=== PATIENT | male | born 1970 | race Caucasian/White ===

== ENCOUNTER 2022-09-11 07:01 | Day surgery (SDC) | payer OTHER, SELFPAY ==
[2022-09-04 09:58] VITALS: BMI 25.6
--- NOTE | 2022-09-10 15:31 | WPDANESEPPF ---
Anes - Initial Pre Proc Eval Procedure: Operation Date: 09/11/22 08:30 Proposed Procedures p Screening Colonoscopy - Luc Marie MD Date/Time: 09/10/22 15:31 Surgeon: Luc Marie MD Pre Op Diagnosis: Neoplasm Screening Patient Data Age: 52 Gender: M Height: 1.88 m Weight: 90.5 kg Allergies Allergy/AdvReac Type Severity Reaction Status Date / Time Penicillins Allergy Other Verified 09/04/22 09:56 Home Medications Medication Instructions Recorded Confirmed Type No Home Medications 09/04/22 09/04/22 History Patient hx anesthesia problems: none Family hx anesthesia problems: none Results Review: All pre-operative results and documents have been reviewed as part of the pre-operative evaluation. [facility] Social History Social History Smoking status: Never smoker Alcohol intake: current Substance use: never Substance use type: does not use Living arrangements: with family Spiritual care concerns: No Anes - Eval Final PreProcedure Day of Procedure 09/10/22 15:31 Patient weight: normal Heart: regular rate and rhythm Lungs: clear to auscultation and normal air movement Airway: Mallampati scale class II Neurological: alert and oriented Last oral intake: >/= 8 hours ASA classification: I Emergent: no Anesthetic plan: proceed Anesthesia type and monitoring: general GIVS Results Review: All pre-operative results and documents have been reviewed as part of the pre-operative evaluation. Informed Consent: The patient's anesthetic plan and its attendant risks and benefits were discussed with the patient/family/POA. Questions were solicited and answers provided to the satisfaction of the patient/family/POA.
[2022-09-11 07:45] VITALS: BP 136/94; PULSE 88; RESP 20; TEMP 36.3; O2SAT 99
[2022-09-11] MEDS: LACTATED RINGERS 1,000 ML 150 ML IV CONT (07:48)
--- NOTE | 2022-09-11 08:22 | PM.HPGS ---
History of Present Illness History of Present Illness Consent: Risks, benefits, and alternatives have been discussed and questions answered. Patient agrees to proceed with procedure. Chief complaint: Neoplasm Screening Narrative: Bonilla Dunbar is a 52 year old male here for first screening colonoscopy Review of Systems Constitutional: Constitutional: Denies headache(s) and Denies weakness Eyes: Eyes: Denies blurry vision ENT: Reports Normal hearing present, Denies headache(s) and Denies neck pain Cardiovascular: Cardiovascular: Denies chest pain and Denies dyspnea Respiratory: Respiratory: Denies dyspnea Gastrointestinal: Gastrointestinal: Reports no additional gastrointestinal complaints Genitourinary: Genitourinary: Denies dysuria Musculoskeletal: Musculoskeletal: Denies neck pain Integumentary/Breasts: Skin/Breast: Denies dry skin Neurologic: Reports Normal hearing present, Denies headache(s) and Denies weakness Psychiatric: Psychiatric: Denies anxiety Endocrine: Endocrine: Denies change in body appearance Hematologic/Lymphatic: Hematologic/Lymphatic: Denies easy bleeding Allergic/Immunologic: Allergic/Immunologic: Denies urticaria REPLACED BY [facility] Past Medical History Medical History (Updated 09/11/22 @ 08:23 by Luc Marie MD) Colon cancer screening Social History Social History Smoking status: Never smoker Alcohol intake: current Substance use: never Substance use type: does not use Living arrangements: with family Spiritual care concerns: No Meds Home Medications and Allergies Home Medications Medication Instructions Recorded Confirmed Type No Home Medications 09/04/22 09/11/22 History Allergies Allergy/AdvReac Type Severity Reaction Status Date / Time Penicillins Allergy Other Verified 09/11/22 07:30 Vital Signs Vital Signs - 24 hr 09/11/22 07:45 Temperature 97.3 F L Pulse Rate 88 Respiratory Rate 20 Blood Pressure 136/94 H Pulse Oximetry 99 Oxygen Delivery Room Air Exam Const: General: comfortable and no acute distress HENMT: Face/Nose/Sinus: Normal nares present Eyes: General: appearance normal, both eyes and all related structures Neck: Neck: no JVD Resp: Auscultation: clear to auscultation bilaterally Cardio: Rate: regular rate Rhythm: regular rhythm GI: Inspection: non-distended GI Palp: Yes Soft to palpation Skin: General skin exam: normal color Neuro: General: gait normal Speech: normal speech Extrem: General: normal to inspection Psych: Mental Status: mental status grossly normal Assessment and Plan Assessment and plan (1) Colon cancer screening: Code(s): Z12.11 - Encounter for screening for malignant neoplasm of colon Status: Acute Assessment and Plan: colonoscopy
[2022-09-11 09:03] VITALS: BP 104/75; PULSE 73; RESP 14; O2SAT 97
[2022-09-11 09:13] VITALS: BP 102/79; PULSE 65; RESP 14; O2SAT 94
[2022-09-11 09:23] VITALS: BP 107/74; PULSE 67; RESP 16; O2SAT 97
--- NOTE | 2022-09-11 10:04 | WPDANESPN ---
Anes - Prog Note Post-Op Date/Time: 09/11/22 10:04 Cardiovascular status: normal Respiratory status: normal Airway patency: baseline Mental status: baseline Post-Op hydration status: normal Vital Signs: Last Vital Signs Temp 36.3 C L 09/11/22 07:45 Pulse 67 09/11/22 09:23 Resp 16 09/11/22 09:23 BP 107/74 09/11/22 09:23 Pulse Ox 97 09/11/22 09:23 O2 Del Method Room Air 09/11/22 09:13 Pain Score (VAS): 0 I/O: Intake & Output 09/10/22 09/11/22 09/11/22 23:59 07:59 15:59 Intake Total 350 Balance 350 Post-procedural complaints: none Patient Feedback: Patient satisfied with anesthetic care.
== END 2022-09-11 09:37 | disposition home or self-care (01) ==
PROVIDERS: PCP Internal Medicine; Visit Provider Internal Medicine Gastroenterology
PROC: 0DJD8ZZ Inspection of Lower Intestinal Tract, Via Natural or Artificial Opening Endoscopic (ICD-10-PCS; CPT 45378; principal; 2022-09-11 08:30)
DX: Z12.11 Encounter for screening for malignant neoplasm of colon (principal)
CPT/HCPCS: 45378